=== PATIENT | female | born 1990 | race Two or more races ===

== ENCOUNTER 2021-02-27 17:22 | Outpatient (CLI) | payer OTHER ==
[2021-02-27] MEDS ORDERED: IRON236 MG PO (19:46)
[2021-02-27] MEDS ORDERED: MACRODANTIN25 MG PO (19:58)
[2021-02-27] MEDS ORDERED: PRENATAL TABLE1 EAC1 PO (19:59)
== END 2021-02-28 13:00 | disposition home or self-care (01) ==
LOC: OBS/DEL 17:22
PROVIDERS: ATTEND Obstetrics & Gynecology
DX: O23.12 Infections of bladder in pregnancy, second trimester (principal); Z3A.22 22 weeks gestation of pregnancy

== ENCOUNTER 2021-06-07 00:34 | Inpatient (IN) | payer OTHER ==
[~2021-06-07] VITALS: Ht 170.2 cm; Wt 94.3 kg
[~2021-06-07 00:34] MED LIST: IRON236 MG PO; MACRODANTIN25 MG PO; PRENATAL TABLE1 EAC1 PO
[2021-06-07] MEDS ORDERED: PEPCID20 MG PO (01:08)
[2021-06-09] MEDS ORDERED: IRON236 MG PO (18:39)
[2021-06-09] MEDS ORDERED: IBUPROFEN400 MG PO (18:39)
[2021-06-09] MEDS ORDERED: DOCUSATE SODIU100 MG PO (18:39)
== END 2021-06-09 19:04 | disposition home or self-care (01) | DRG 807 ==
LOC: LDR 00:34 → OB/GYN 00:34 → LDR 05:30 → OB/GYN 16:47
PROVIDERS: ADMIT Obstetrics & Gynecology; ATTEND Obstetrics & Gynecology
PROC: 10E0XZZ Delivery of Products of Conception, External Approach (ICD-10-PCS; principal; 2021-06-07)
PROC: 0W8NXZZ Division of Female Perineum, External Approach (ICD-10-PCS; 2021-06-07)
PROC: 4A1HXFZ Monitoring of Products of Conception, Cardiac Rhythm, External Approach (ICD-10-PCS; 2021-06-07)
DX: O42.02 Full-term premature rupture of membranes, onset of labor within 24 hours of rupture (principal); Z37.0 Single live birth; Z3A.37 37 weeks gestation of pregnancy